=== PATIENT | female | born 1985 | race Two or more races ===

== ENCOUNTER → 2019-11-02 | Outpatient (CLI) | payer OTHER | END | disposition home or self-care (01) | LOC: PRENATAL 13:26 | PROVIDERS: ATTEND Obstetrics & Gynecology | DX: O99.212 Obesity complicating pregnancy, second trimester (principal); O35.3XX1 Maternal care for (suspected) damage to fetus from viral disease in mother, fetus 1 ==

== ENCOUNTER → 2019-11-30 | Outpatient (CLI) | payer OTHER | END | disposition home or self-care (01) | LOC: PRENATAL 10:00 | PROVIDERS: ATTEND Obstetrics & Gynecology | DX: O26.842 Uterine size-date discrepancy, second trimester (principal); O99.210 Obesity complicating pregnancy, unspecified trimester ==

== ENCOUNTER 2019-12-17 11:47 | Outpatient (CLI) | payer OTHER ==
[2019-12-17] MEDS ORDERED: FOLIC ACID0.4 MG (12:57)
== END 2020-02-05 | disposition home or self-care (01) ==
LOC: ER 11:47 → PRENATAL 02-05 11:30 → EDSTATUS 02-05 11:30 → PRENATAL 02-05 11:55
PROVIDERS: ATTEND Obstetrics & Gynecology Maternal & Fetal Medicine
DX: O26.843 Uterine size-date discrepancy, third trimester (principal); O99.213 Obesity complicating pregnancy, third trimester; Z36.89 Encounter for other specified antenatal screening; Z3A.35 35 weeks gestation of pregnancy

== ENCOUNTER 2019-12-17 11:52 | Emergency (ER) | payer OTHER ==
[~2019-12-17] VITALS: Ht 167.6 cm; Wt 113.9 kg
[2019-12-17] MEDS ORDERED: FOLIC ACID0.4 MG (12:57)
== END 2019-12-17 16:08 | disposition home or self-care (01) ==
LOC: ER 11:52
DX: B34.9 Viral infection, unspecified (principal)

== ENCOUNTER 2020-02-29 14:45 | Inpatient (IN) | payer OTHER ==
[~2020-02-29] VITALS: Ht 167.6 cm; Wt 3.6 kg
[~2020-02-29 14:45] MED LIST: FOLIC ACID0.4 MG
[2020-03-08] MEDS ORDERED: PRENATAL TABLE1 EAC1 PO (08:38)
== END 2020-03-12 18:01 | disposition home or self-care (01) | DRG 786 ==
LOC: EDSTATUS 14:45 → OB/GYN 03-08 06:23 → LDR 03-08 06:23 → O/R 03-09 19:22 → OB/GYN 03-09 19:59
PROVIDERS: ADMIT Obstetrics & Gynecology; ATTEND Obstetrics & Gynecology
PROC: 4A1HXFZ Monitoring of Products of Conception, Cardiac Rhythm, External Approach (ICD-10-PCS; 2020-03-08)
PROC: 3E0P7VZ Introduction of Hormone into Female Reproductive, Via Natural or Artificial Opening (ICD-10-PCS; 2020-03-09)
PROC: 10907ZC Drainage of Amniotic Fluid, Therapeutic from Products of Conception, Via Natural or Artificial Opening (ICD-10-PCS; 2020-03-09)
PROC: 8E0ZXY6 Isolation (ICD-10-PCS; 2020-03-09)
PROC: 10D00Z1 Extraction of Products of Conception, Low, Open Approach (ICD-10-PCS; principal; 2020-03-09 18:00)
DX: O62.1 Secondary uterine inertia (principal); U07.1 COVID-19; O98.52 Other viral diseases complicating childbirth; O13.4 Gestational [pregnancy-induced] hypertension without significant proteinuria, complicating childbirth; Z3A.39 39 weeks gestation of pregnancy; Z37.0 Single live birth

== ENCOUNTER 2020-03-19 22:59 | Emergency (ER) | payer OTHER ==
[~2020-03-19] VITALS: Ht 167.6 cm; Wt 112.9 kg
[~2020-03-19 22:59] MED LIST changes: +PRENATAL TABLE1 EAC1 PO
[2020-03-20] MEDS ORDERED: KETO10TA2 PO (03:28)
[2020-03-20] MEDS ORDERED: DUI500 PO (03:28)
[2020-03-20] MEDS ORDERED: INTESTINEX680 M2 PO (03:28)
== END 2020-03-20 04:13 ==
LOC: ER 22:59
DX: O86.09 Infection of obstetric surgical wound, other surgical site (principal); L03.311 Cellulitis of abdominal wall
CPT/HCPCS: 74177; Q9965